=== PATIENT | male | born 1950 | race Caucasian/White ===

== ENCOUNTER 2017-01-29 21:35 | Emergency (ER) | payer OTHER ==
[~2017-01-29] VITALS: Wt 90.5 kg
[2017-01-29] MEDS ORDERED: ONDANSETRON (ODT) 4 MG TAB ODT STA (22:46)
[2017-01-29] MEDS ORDERED: LORAZEPAM 2 MG INJ IM ONE (23:00)
[2017-01-29 23:19] VITALS: BP 138/69; PULSE 89; RESP 20; TEMP 99
--- NOTE | 2017-01-29 23:26 | ERD ---
ER Documentation Chief Complaint Date/Time DATE: 01/29/17 TIME: 23:20 Chief Complaint states nauseus, denies abd pain. no vomiting HPI 66 year old male with history of hypertension and depression presenting to the emergency department complaining of nausea and anxiety for the past couple days. Patient states that his doctor just put him on Paxil on Monday, he stated he took the medication on Monday and another dose today. Patient denies chest pain, shortness of breath, abdominal pain, vomiting, diarrhea. ROS All systems reviewed and are negative except as per history of present illness. Medications Home Meds No Active Prescriptions or Reported Meds Allergies Allergies: Coded Allergies: No Known Allergy (Unverified , 01/29/17) PMhx/Soc Medical and Surgical Hx: pt denies Surgical Hx History of Surgery: No Anesthesia Reaction: No Hx Neurological Disorder: No Hx Respiratory Disorders: No Hx Cardiac Disorders: Yes (HTN) Hx Psychiatric Problems: Yes (Depression) Hx Miscellaneous Medical Probl: Yes (anxiety) Hx Alcohol Use: No Hx Substance Use: No Hx Tobacco Use: No Smoking Status: Former smoker Physical Exam Vitals Vital Signs Date Time Temp Pulse Resp B/P Pulse Ox O2 Delivery O2 Flow Rate FiO2 01/29/17 21:51 99.0 88 20 141/65 97 Physical Exam GENERAL: well-developed/well-nourished, in no apparent distress, non-toxic appearing HENT: NC/AT, moist mucous membranes EYES: Conjunctiva normal NECK: Supple, no lymphadenopathy PULM: CTA bilaterally, no rales, rhonchi, or wheezing heard CV: Normal S1S2, RRR, good capillary refill GI: Soft, non-distended, non-tender to palpation Normal bowel sounds, no masses or organomegaly felt on exam No gross peritonitis, no bruits Negative Rovsing, negative Colón, negative McBurney's point, Negative CVAT BACK: No masses EXT: No clubbing, cyanosis, or edema NEURO: Alert and Orientated SKIN: Intact, normal turgor PSYCH: Normal mood and mentation Results 24 hrs Current Medications Medications (Trade) Dose Ordered Sig/Sherice Route PRN Reason Start Time Stop Time Status Last Admin Dose Admin Lorazepam (Ativan) 1 mg ONCE ONCE IM 01/29/17 23:00 01/29/17 23:01 DC 01/29/17 23:01 Ondansetron HCl (Zofran Odt) 4 mg ONCE STAT ODT 01/29/17 22:46 01/29/17 22:47 DC 01/29/17 23:01 Procedures/MDM 66 year old male with history of hypertension and depression presenting to the emergency department complaining of nausea and anxiety for the past couple days. Patient states that his doctor just put him on Paxil on Monday, he stated he took the medication on Monday and another dose today. Nausea anxiety is most likely due to an adverse reaction to Paxil, this patient has not been taking it that long I discussed to discontinue it and to follow-up with his primary care physician for further evaluation management. In the ED I have given patient 1 mg of Ativan and Zofran for the nausea, I have reassessed and he stated he completely feels better. Patient stable for discharge and neurovascular intact, I have discussed return to the emergency room for any worsening sinus symptoms. Patient understands and agrees with this plan EKG: read and signed off by myself and Rate/Rhythm: Normal Sinus Rhythm at 75 bpm QRS, ST, T-waves: No changes consistent w/ acute ischemia Impression: No evidence of ischemia or arrhythmia Departure Diagnosis: Primary Impression: Nausea Condition: Stable Patient Instructions: Nausea, Paroxetine Hydrochloride Oral tablet Additional Instructions: Visite a edin patterson para un EXAMEN.Regrese a estas instalaciones si no se mejora genna esperbamos o genna le dijimos. Regrese a estas instalaciones si no se mejora genna esperbamos o genna le dijimos. CACHORRO LOZANO PA-C Jan 29, 2017 23:26
== END 2017-01-30 00:06 | disposition home or self-care (01) ==
LOC: FTE 21:35
DX: R11.0 Nausea (principal); I10 Essential (primary) hypertension; Z87.891 Personal history of nicotine dependence
CPT/HCPCS: 93005; 96372; 99284; J2060

== ENCOUNTER 2019-04-05 11:34 | Emergency (ER) | payer OTHER ==
[~2019-04-05] VITALS: Ht 160 cm; Wt 75.0 kg
[~2019-04-05 11:34] MED LIST: AMOX1TAB10 PO
[2019-04-05 11:39] VITALS: Ht 160 cm; Wt 75.0 kg
--- NOTE | 2019-04-05 15:08 | ERD ---
ER Documentation Chief Complaint Chief Complaint swollen lymph node on left side of neck HPI Patient 68-year-old male presenting with neck mass on left side x1 year. Patient states this is been here for 1 year and he has concerns because he is having a dentist appointment coming up this week. Patient states he felt feverish a week ago. Patient states the fever has resided and he is denies any body aches body chills nausea vomiting or difficulty swallowing. The patient said he used to smoke but he quit. The patient denies unintentional weight loss. The patient is currently not taking any medications and is not under the care of any primary care provider. ROS All systems reviewed and are negative except as per history of present illness. Medications Home Meds Active Scripts Acetaminophen* (Tylenol*) 325 Mg Tablet, 1 TAB PO Q6 PRN for PAIN AND OR ELEVATED TEMP, #20 TAB Prov:ROOPA CASTILLO PA-C 04/05/19 Amoxicillin/Potassium Clav (Amox-Clav 875-125 mg Tablet) 875-125 mg Tab, 1 TAB PO BID for 10 Days, #20 TAB Prov:KOBE WOODSON 03/21/18 Allergies Allergies: Coded Allergies: No Known Allergy (Unverified , 01/29/17) PMhx/Soc Medical and Surgical Hx: pt denies Medical Hx, pt denies Surgical Hx History of Surgery: No Anesthesia Reaction: No Hx Neurological Disorder: No Hx Respiratory Disorders: No Hx Cardiac Disorders: Yes (HTN) Hx Psychiatric Problems: Yes (Depression) Hx Miscellaneous Medical Probl: Yes (anxiety) Hx Alcohol Use: No Hx Substance Use: No Hx Tobacco Use: No FmHx Family History: No diabetes, No coronary disease, No other Physical Exam Vitals Vital Signs Date Temp Pulse Resp B/P (MAP) Pulse Ox O2 O2 Flow FiO2 Time Delivery Rate 04/05/19 97.9 84 20 146/72 96 Room Air 17:25 (96) 04/05/19 98.1 94 18 163/77 96 11:39 (105) Physical Exam GENERAL: The patient is well-appearing, well-nourished, in no acute distress HEENT: Atraumatic. Conjunctivae are pink. Pupils equal, round, and reactive to light. There is no scleral icterus. Tympanic membranes clear bilaterally. Oropharynx clear. No nystagmus or photophobia. NECK: left lateral neck mass , patient does not have pain on palpation, patient is able to swallow without difficulty, no nodules felt on palpitation and skin was warm dry to palpation C-spine is soft and supple. There is no meningismus. CHEST: Clear to auscultation bilaterally. There are no rales, wheezes or rhonchi. HEART: Regular rate and rhythm. No murmurs, clicks, rubs or gallops. HEMATOLOGIC AND LYMPHATIC: There is no evidence of excessive bruising . Result Diagram: 04/05/19 1508 04/05/19 1508 Results 24 hrs Laboratory Tests Test 04/05/19 15:08 White Blood Count 6.8 10^3/ul Red Blood Count 4.68 10^6/ul Hemoglobin 14.9 g/dl Hematocrit 43.2 % Mean Corpuscular Volume 92.3 fl Mean Corpuscular Hemoglobin 31.8 pg Mean Corpuscular Hemoglobin Concent 34.5 g/dl Red Cell Distribution Width 12.2 % Platelet Count 166 10^3/UL Mean Platelet Volume 10.6 fl Immature Granulocytes % 0.100 % Neutrophils % 44.9 % Lymphocytes % 43.5 % Monocytes % 9.3 % Eosinophils % 1.3 % Basophils % 0.9 % Nucleated Red Blood Cells % 0.0 /100WBC Immature Granulocytes # 0.010 10^3/ul Neutrophils # 3.1 10^3/ul Lymphocytes # 3.0 10^3/ul Monocytes # 0.6 10^3/ul Eosinophils # 0.1 10^3/ul Basophils # 0.1 10^3/ul Nucleated Red Blood Cells # 0.0 10^3/ul Sodium Level 136 mmol/L Potassium Level 3.8 mmol/L Chloride Level 101 mmol/L Carbon Dioxide Level 25 mmol/L Anion Gap 10 Blood Urea Nitrogen 10 mg/dl Creatinine 0.57 mg/dl Est Glomerular Filtrat Rate mL/min > 60 mL/min Glucose Level 263 mg/dl Calcium Level 9.4 mg/dl Total Bilirubin 0.7 mg/dl Direct Bilirubin 0.00 mg/dl Indirect Bilirubin 0.7 mg/dl Aspartate Amino Transf (AST/SGOT) 40 IU/L Alanine Aminotransferase (ALT/SGPT) 69 IU/L Alkaline Phosphatase 78 IU/L Total Protein 8.1 g/dl Albumin 4.1 g/dl Globulin 4.00 g/dl Albumin/Globulin Ratio 1.02 Thyroid Stimulating Hormone (TSH) 6.680 MIU/L Procedures/MDM ED course: History physical exam CBC, CMP, TSH Ultrasound of the neck The patient was stable throughout the ED course. The patient and/or family informed of laboratory and diagnostic imaging results throughout the ED course. Diagnostic imaging: Read by radiologist Karl Powers MD, PROCEDURE: Ultrasound neck CLINICAL INDICATION: Swollen glands, mass TECHNIQUE: Sonographic evaluation of the bilateral neck was performed utilizing a linear transducer. Edward scale and color imaging was performed in the sagittal and coronal planes. Images were reviewed on a high-resolution PACS workstation. COMPARISON: None available FINDINGS: Small benign appearing lymph nodes are seen in the bilateral neck, measuring up to 5 mm short axis diameter bilaterally. All visualized lymph nodes demonstrate retention of the normal fatty sharri. No pathologically enlarged lymph node is identified. IMPRESSION: 1. Small benign appearing lymph nodes are present in the bilateral neck, as above. No evidence of mass, fluid collection, or pathologic enlarged lymph node is identified. Medical decision making: Patient is a 68-year-old male presenting with a neck mass x1 year. Patient states he felt feverish about a week ago but those symptoms have resided since. The patient denies any difficulty swallowing, fever, chills, night sweats, unintentional weight loss. Patient is most concerned because he is having a d ental procedure done this week. The patient denies any shortness of breath or chest pain. Physical exam was unremarkable. The patient does have swelling to the left lateral neck but it is nontender to palpation. The patient is able to swallow without difficulty. Patient's tonsils were observed and no presence of peritonsillar abscess, or foreign body was present on examination. The patient is able to cough and can speak in full sentences. Patient has clear bilateral lung sounds. A tongue depressor was placed in the patient's mouth there is no presence of obstruction and the patient has a good gag reflex the patient remains afebrile. The patient has not experienced any diarrhea, heart palpitations, lethargic symptoms. Patient was worked up to look for active infection and a neck ultrasound was ordered to rule out soft tissue mass, obstruction of airway. No evidence of mass, fluid collection, or pathologic enlarged lymph node is identified Patient states that in the past these had issues with his thyroid so a TSH was ordered. the patient was just recently discharged from the ED for viral pharyngitis. The patient vitals remained stable during his entire visit. Patient's TSH is elevated. Patient's been advised that he needs to establish care with a primary care provider to undergo long-term treatment. Patient is not symptomatic at this time patient has been stable throughout his entire stay in the ER. Patient is being provided with resources to establish care with a primary care provider and is being provided with information regarding the community clinic. at this time I have Low suspicion for pneumonia, meningitis, sinusitis, otitis externa, acute otitis media, strep pharyngitis, epiglottitis or peritonsillar abscess the patient plans to follow back up for his TSH results. The patient is in no acute distress. The patient was discharged with prescription for Tylenol for mild discomfort. Patient was advised that he needs to establish care with a primary care provider to get clearance for dental work. At this time there is no signs of active infection or acute airway obstruction. The patient does not have a primary care provider and was given resources to the community clinic. Patient had no further questions upon discharge Discharge: At this time, patient is stable for discharge and outpatient management. I have instructed the patient to follow-up with his\her primary care physician in 1 to 2 days. I have discussed with the patient the possibility of needing to see a specialist for further work-up and imaging studies if symptoms persist. I have instructed the patient to promptly return to the ER for any new or worsening symptoms including increased pain, fever, nausea, vomiting, weakness or LOC. The patient and\or family expressed understanding of and agreement with this plan. All questions were answered. Home care instructions were provided. Disclaimer: Inadvertent spelling and grammatical errors are likely due to EHR\dictation software use and do not reflect on the overall quality of patient care. Also, please note that the electronic time recorded on the note does not necessarily reflect the actual time of the patient encounter. Departure Diagnosis: Primary Impression: Unilateral mass of neck Condition: Stable Patient Instructions: Back And Neck Pain, General Referrals: [facility] ROOPA CASTILLO PA-C April 05, 2019 15:08
[2019-04-05] MEDS ORDERED: ACET325T33 PO (17:07)
[2019-04-05 17:25] VITALS: BP 146/72; PULSE 84; RESP 20
== END 2019-04-05 17:25 | disposition home or self-care (01) ==
LOC: FTE 11:34
DX: R22.1 Localized swelling, mass and lump, neck (principal); I10 Essential (primary) hypertension
CPT/HCPCS: 76536; 80053; 84443; 85025